=== PATIENT | female | born 1970 | race American Indian/Alaskan Native ===

== ENCOUNTER 2018-06-20 15:31 | Inpatient (IN) | payer MEDICARE ==
--- NOTE | 2018-06-20 16:56 | Emergency Department Report ---
HPI - General Chief Complaint: Upper Respiratory Infection Time Seen by Provider: 06/20/18 16:46 - HPI HPI: 48-year-old -[place] female presents to the emergency department via EMS from home with complaint of acute on chronic shortness of breath and chest tightness/pressure. The patient thinks it is related to mold that she has in her home. She was leaving the bathroom this afternoon and felt like "I was on my last leg." She has a past medical history of diet-controlled diabetes, hypertension, previous colon resection with colostomy, and morbid obesity. The patient received 5 mg of albuterol and 125 mg of Solu-Medrol in route with some mild relief. No recent travel or sick contacts at home. Her primary care physician is Dr. Josefina Eden. ED Past Medical Hx - Past Medical History Hx Hypertension: Yes Hx Congestive Heart Failure: No Hx Diabetes: Yes Hx Asthma: No Hx COPD: No - Surgical History Hx Appendectomy: Yes (2010) Additional Surgical History: 2 , ovarian cyst ruptured 2010,colon re section with colostomy,[id number] - Social History Smoking Status: Never Smoker - Medications Home Medications: Home Medications Medication Instructions Recorded Confirmed Last Taken Type Amoxicillin [Trimox CAP] 500 mg PO Q8H 11/24/15 11/24/15 Unknown History Lisinopril/Hydrochlorothiazide 1 tab PO QDAY 11/24/15 11/24/15 Unknown History [Zestoretic 20-12.5 mg] ED Review of Systems ROS: Stated complaint: DIFFICULTY BREATHING Other details as noted in HPI Comment: All other systems reviewed and negative Constitutional: denies: chills, fever Eyes: denies: eye pain, vision change ENT: denies: ear pain, throat pain Respiratory: cough (nonproductive), shortness of breath Cardiovascular: chest pain. denies: palpitations Gastrointestinal: denies: abdominal pain, vomiting Genitourinary: denies: dysuria, discharge Musculoskeletal: denies: back pain, arthralgia Skin: denies: rash, lesions Neurological: denies: headache, weakness Physical Exam - Physical Exam Vital Signs: Vital Signs 06/20/18 16:36 Temperature 97.8 F Pulse Rate 97 H Respiratory 20 Rate Blood Pressure 149/77 [Right] O2 Sat by Pulse 93 Oximetry Physical Exam: GENERAL: The patient is well-developed well-nourished. HEENT: Normocephalic. Atraumatic. Patient has moist mucous membranes. EYES: Extraocular motions are intact. Pupils are equal and reactive to light bilaterally. NECK: Supple. Trachea is midline. CHEST/LUNGS: Clear to auscultation. There is tachypnea but no sensory muscle use. There is no respiratory distress noted. HEART/CARDIOVASCULAR: Regular. There is no tachycardia. There is no obvious murmur. ABDOMEN: Abdomen is soft, nontender. Patient has normal bowel sounds. Severely morbidly obese. SKIN: Skin is warm and dry. NEURO: The patient is awake, alert, and oriented. The patient is cooperative. The patient has no focal neurologic deficits. The patient has normal speech. MUSCULOSKELETAL: There is no tenderness or deformity. There is no evidence of acute injury. ED Course Vital Signs 06/20/18 16:36 Temperature 97.8 F Pulse Rate 97 H Respiratory 20 Rate Blood Pressure 149/77 [Right] O2 Sat by Pulse 93 Oximetry ED Medical Decision Making - Lab Data Result diagrams: 06/20/18 17:34 06/20/18 17:34 - EKG Data -: EKG Interpreted by Dc EKG shows normal: sinus rhythm, axis, intervals, QRS complexes, ST-T waves Rate: normal - EKG Data When compared to previous EKG there are: previous EKG unavailable Interpretation: normal EKG - Radiology Data Radiology results: image reviewed interpreted by me: Chest x-ray shows some haziness to the right middle to lower lung. No pleural effusions, no pneumothorax and no obvious focal consolidation. - Medical Decision Making This patient presents with the complaint of shortness of breath and chest tightness that started acutely just prior to arrival but also has been going on intermittently in the recent past. EKG was normal without ST elevation TN, ischemia or dysrhythmia. Chest x-ray shows some haziness towards the right middle and lower lungs. Patient's labs appeared mostly unremarkable except for an elevated and equivocal d-dimer. Unfortunately, secondary to the patient's habitus and weight, we are unable to get a CT angiography of the chest or a VQ scan to rule out a pulmonary embolism. She has been treated empirically with a dose of Lovenox at 1 unit per KG. She was given a dose of azithromycin secondary to the haziness seen on chest x-ray. Vital signs stable throughout her ED course including being afebrile. The patient will be admitted to the hospital for further evaluation and treatment and was accepted for admission by the hospitalist, Dr. Olmedo. - Differential Diagnosis pneumonia, CHF, PE, TN, Asthma Critical Care Time: No Critical care attestation.: If time is entered above; I have spent that time in minutes in the direct care of this critically ill patient, excluding procedure time. ED Disposition Clinical Impression: Acute chest pain, Morbid obesity, Obesity hypoventilation syndrome Dyspnea Qualifiers: Dyspnea type: shortness of breath Qualified Code(s): R06.02 - Shortness of breath; R06.00 - Dyspnea, unspecified; R06.01 - Orthopnea Disposition: 09 OP ADMIT IP TO THIS HOSP Is pt being admited?: Yes Condition: Fair Instructions: Chest Pain (ED) Referrals: CHRISTIANO RAMIREZ DO [Primary Care Provider] - 3-5 Days Time of Disposition: 22:19
[2018-06-20 18:15] LABS: Basophils # (Auto) 0.1 K/mm3 (0.0-0.1); Basophils % (Auto) 0.4 % (0.0-1.8); Eosinophils # (Auto) 0.1 K/mm3 (0.0-0.4); Eosinophils % (Auto) 0.7 % (0.0-4.3); Hemoglobin 13.9 gm/dl (10.1-14.3); Lymphocytes # (Auto) 1.4 K/mm3 (1.2-5.4); Lymphocytes % (Auto) 12.1 % (13.4-35.0); Mean Corpuscular HGB Conc 33 % (30-34); Mean Corpuscular Volume 86 fl (79-97); Monocytes # (Auto) 0.4 K/mm3 (0.0-0.8); Monocytes % (Auto) 3.3 % (0.0-7.3); Platelet Count 251 K/mm3 (140-440); Red Cell Distribution Width 14.9 % (13.2-15.2)
[2018-06-20 18:38] LABS: BUN/Creatinine Ratio 11; Blood Urea Nitrogen 10 mg/dL (7-17); Calcium 9.3 mg/dL (8.4-10.2); Hemolysis Index 4
[2018-06-20] MEDS ORDERED: DUONEB *Not for PRN Use IH ONE (18:50)
--- NOTE | 2018-06-20 19:22 | XRay Report ---
PROCEDURE: XR CHEST 1V AP TECHNIQUE: AP chest x-ray HISTORY: Chest Pain COMPARISONS: FINDINGS: The heart is magnified due to projection, probably normal size. Pulmonary vasculature not significant ly distended. A small amount of patchy alveolar density appears to be present in both bases suggestin g subsegmental areas of atelectasis or infiltrate. No dense consolidations or effusions are visualize d. No acute bone abnormalities are seen. IMPRESSION: Small amount of patchy alveolar density in the bases suggesting subsegmental areas of atelectasis or infiltrate. No dense consolidations or effusions are seen. No other abnormalities are identified.. This document is electronically signed by Tucker Shoemaker MD., June 20 2018 07:20:17 PM ET
[2018-06-20] MEDS ORDERED: LOVENOX SUB-Q SCH ×3 (22:00)
[2018-06-20] MEDS ORDERED: LOVENOX SUB-Q ONE (22:16)
[2018-06-20] MEDS ORDERED: ZITHROMAX 500 MG in NACL 0.9% 250ML 250 ML IV ONE (22:16)
[2018-06-20] MEDS ORDERED: ZOFRAN IV PRN (22:45)
[2018-06-20] MEDS ORDERED: ALUM-MAG HYDROX-SIMETH 200-200-20MG/5ML PO PRN (22:45)
[2018-06-20] MEDS ORDERED: MORPHINE IV PRN (22:45)
[2018-06-20] MEDS ORDERED: SODIUM CHLORIDE FLUSH SYRINGE 10 ML IV PRN (22:45)
[2018-06-20] MEDS ORDERED: TYLENOL PO PRN (22:45)
--- NOTE | 2018-06-20 23:59 | History and Physical Report ---
History of Present Illness Date of examination: 06/20/18 Date of admission: 06/20/18 22:45 Chief complaint: Shortness of breath History of present illness: Patient is a 48-year-old -[place] Citizen female with a history of hypertension and morbid obesity who presented to the ED on account of shortness of breath. Patient stated that she's been having shortness of breath for many weeks but it got worse today which prompted her to come to the ED for further evaluation. She has associated chest heaviness, cough productive of whitish sputum, runny nose with congestion and lightheaded. She denies fever, chills, leg swelling, orthopnea or PND. No headaches, nausea, vomiting, syncope or loss of consciousness. She has positive history of constipation but no abdominal pain, diarrhea, dysuria or frequency. Past History Past Medical History: hypertension, other (morbid obesity, prediabetes) Past Surgical History: , hysterectomy, Other (D&C) Social history: no significant social history (she denies tobacco, alcohol or illicit drug use) Family history: diabetes (mother), hypertension (mother) Medications and Allergies Allergies Allergy/AdvReac Type Severity Reaction Status Date / Time morphine Allergy Itching Verified 11/24/15 11:36 Home Medications Medication Instructions Recorded Confirmed Last Taken Type Amoxicillin [Trimox CAP] 500 mg PO Q8H 11/24/15 11/24/15 Unknown History Lisinopril/Hydrochlorothiazide 1 tab PO QDAY 11/24/15 11/24/15 Unknown History [Zestoretic 20-12.5 mg] Active Meds: Active Medications Acetaminophen (Tylenol) 650 mg PO Q4H PRN PRN Reason: Pain MILD(1-3)/Fever >100.5/VALENTE Al Hydrox/Mg Hydrox/Simethicone (Alum-Mag Hydrox-Simeth [phone]/5ml) 30 ml PO Q4H PRN PRN Reason: Indigestion Enoxaparin Sodium (Lovenox) 40 mg SUB-Q QDAY HARVEY Famotidine (Pepcid) 10 mg PO BID HARVEY Levofloxacin/Dextrose (Levaquin 750mg/150ml) 750 mg in 150 mls @ 100 mls/hr IV Q24HR HARVEY; Protocol Ondansetron HCl (Zofran) 4 mg IV Q8H PRN PRN Reason: Nausea And Vomiting Sodium Chloride (Sodium Chloride Flush Syringe 10 Ml) 10 ml IV BID HARVEY Sodium Chloride (Sodium Chloride Flush Syringe 10 Ml) 10 ml IV PRN PRN PRN Reason: LINE FLUSH Review of Systems All systems: negative (except as documented in the HPI, all other systems were reviewed and negative) Exam - Constitutional Vitals: Temp Pulse Resp BP Pulse Ox 98.2 F 83 17 131/68 96 06/20/18 21:39 06/20/18 23:00 06/20/18 23:00 06/20/18 23:00 06/20/18 23:00 General appearance: Present: no acute distress, obese - EENT Eyes: Present: PERRL, EOM intact ENT: hearing intact, clear oral mucosa - Neck Neck: Present: supple, normal ROM - Respiratory Respiratory effort: normal Respiratory: bilateral: rales - Cardiovascular Rhythm: regular Heart Sounds: Present: S1 & S2. Absent: rub, click - Extremities Extremity abnormal: edema (trace edema in bilateral lower extremities) Peripheral Pulses: within normal limits - Abdominal General gastrointestinal: Present: soft, non-tender, non-distended, normal bowel sounds Female genitourinary: Present: deferred - Integumentary Integumentary: Present: clear, warm, dry - Musculoskeletal Musculoskeletal: gait normal, strength equal bilaterally - Psychiatric Psychiatric: appropriate mood/affect, intact judgment & insight - Neurologic Neurologic: CNII-XII intact, moves all extremities Results - Labs CBC & Chem 7: 06/20/18 17:34 06/20/18 17:34 Labs: Laboratory Last Values WBC 11.9 K/mm3 (4.5-11.0) H 06/20/18 17:34 RBC 4.90 M/mm3 (3.65-5.03) 06/20/18 17:34 Hgb 13.9 gm/dl (10.1-14.3) 06/20/18 17:34 Hct 42.0 % (30.3-42.9) 06/20/18 17:34 MCV 86 fl (79-97) 06/20/18 17:34 MCH 28 pg (28-32) 06/20/18 17:34 MCHC 33 % (30-34) 06/20/18 17:34 RDW 14.9 % (13.2-15.2) 06/20/18 17:34 Plt Count 251 K/mm3 (140-440) 06/20/18 17:34 Lymph % (Auto) 12.1 % (13.4-35.0) L 06/20/18 17:34 Bea[place]gard % (Auto) 3.3 % (0.0-7.3) 06/20/18 17:34 Eos % (Auto) 0.7 % (0.0-4.3) 06/20/18 17:34 Baso % (Auto) 0.4 % (0.0-1.8) 06/20/18 17:34 Lymph # 1.4 K/mm3 (1.2-5.4) 06/20/18 17:34 [place]gard # 0.4 K/mm3 (0.0-0.8) 06/20/18 17:34 Eos # 0.1 K/mm3 (0.0-0.4) 06/20/18 17:34 Baso # 0.1 K/mm3 (0.0-0.1) 06/20/18 17:34 Seg Neutrophils % 83.5 % (40.0-70.0) H 06/20/18 17:34 Seg Neutrophils # 9.9 K/mm3 (1.8-7.7) H 06/20/18 17:34 D-Dimer 651.48 ng/mlDDU (0-234) H 06/20/18 17:34 Sodium 145 mmol/L (137-145) 06/20/18 17:34 Potassium 3.6 mmol/L (3.6-5.0) 06/20/18 17:34 Chloride 98.1 mmol/L (98-107) 06/20/18 17:34 Carbon Dioxide 36 mmol/L (22-30) H 06/20/18 17:34 Anion Gap 15 mmol/L 06/20/18 17:34 BUN 10 mg/dL (7-17) 06/20/18 17:34 Creatinine 0.9 mg/dL (0.7-1.2) 06/20/18 17:34 Estimated GFR > 60 ml/min 06/20/18 17:34 BUN/Creatinine Ratio 11 % 06/20/18 17:34 Glucose 147 mg/dL (65-100) H 06/20/18 17:34 Calcium 9.3 mg/dL (8.4-10.2) 06/20/18 17:34 Troponin T < 0.010 ng/mL (0.00-0.029) 06/20/18 20:50 NT-Pro-B Natriuret Pep 242.5 pg/mL (0-450) 06/20/18 17:34 Assessment and Plan Assessment and plan: Acute bronchitis/Possible pneumonia -On IV antibiotic and nebulizer breathing treatment Chest heaviness -Continue serial troponin level monitoring -Patient will be unable to have stress test due to body habitus Elevated d-dimer -Patient unable to have either v/q scan or CTA chest due to body habitus -We'll order venous Doppler ultrasound of BLE to assess for DVT Metabolic alkalosis -will do ABG Obesity hypoventilation syndrome -Weight loss recommended Morbid obesity with BMI of 73.2 -Lifestyle modification recommended Hypertension -Stable, resume home meds Hyperglycemia -We will check hemoglobin A1c level Suspected VANI -Pt would benefit from out-pt sleep study DVT prophylaxis with Lovenox Disposition: For discharge when medically stable Time spent: 38 minutes
[2018-06-21] MEDS ORDERED: DUONEB *Not for PRN Use IH ONE ×2 (04:35→12:59)
[2018-06-21] MEDS: DUONEB *Not for PRN Use IH SCH ×3 (04:35→20:50)
[2018-06-21 07:29] LABS: Basophils # (Auto) 0.1 K/mm3 (0.0-0.1); Basophils % (Auto) 0.5 % (0.0-1.8); Hematocrit 41.8 % (30.3-42.9); Hemoglobin 13.7 gm/dl (10.1-14.3); Lymphocytes % (Auto) 9.4 % (13.4-35.0); Mean Corpuscular HGB Conc 33 % (30-34); Mean Corpuscular Volume 86 fl (79-97); Monocytes # (Auto) 0.5 K/mm3 (0.0-0.8); Platelet Count 248 K/mm3 (140-440); Red Blood Count 4.87 M/mm3 (3.65-5.03); Red Cell Distribution Width 14.9 % (13.2-15.2)
[2018-06-21] MEDS ORDERED: LEVAQUIN 750MG/150ML 750 MG/150 ML BAG IV ONE (10:08)
[2018-06-21] MEDS ORDERED: LOVENOX SUB-Q ONE (10:08)
[2018-06-21] MEDS ORDERED: PEPCID ONE (10:08)
[2018-06-21] MEDS: PEPCID PO SCH ×2 (10:10→21:18)
[2018-06-21] MEDS: LOVENOX SUB-Q SCH (10:10)
[2018-06-21] MEDS: SODIUM CHLORIDE FLUSH SYRINGE 10 ML IV SCH ×2 (13:50→21:19)
[2018-06-21] MEDS: LEVAQUIN 750MG/150ML 750 MG/150 ML BAG IV SCH (14:15)
--- NOTE | 2018-06-21 15:11 | Vascular Lab Report ---
PROCEDURE: VL VENOUS DUPLEX LE BILAT TECHNIQUE: Duplex Doppler ultrasound examination of the venous system of the right leg and left leg HISTORY: ELEVATED D-DIMER COMPARISONS: None FINDINGS: RIGHT LEG: Normal compressibility, vascular patency, and augmentation are present diffusely throughout the visua lized portion of the deep veins. No abnormal intraluminal echoes are visualized to suggest deep vein thrombus. Examination limited by body habitus IMPRESSION: No ultrasound evidence of DVT in the right leg LEFT LEG: Normal compressibility, vascular patency, and augmentation are present diffusely throughout the visua lized portion of the deep veins. No abnormal intraluminal echoes are visualized to suggest deep vein thrombus. Examination limited by body habitus IMPRESSION: No ultrasound evidence of DVT in the left leg This document is electronically signed by Teddy Spence MD., June 21 2018 03:09:28 PM ET
--- NOTE | 2018-06-21 16:52 | Progress Note ---
Assessment and Plan Acute respiratory failure - Presumably acute on chronic issue due to obesity hypoventilation syndrome and obstructive sleep apnea - Probably exacerbated because of acute bronchitis/pneumonia - Continue scheduled neb, supplemental O2 as needed - Needs sleep study outpatient, will ASSESS for possible home O2 requirement on discharge Acute bronchitis/Possible bilateral community-acquired pneumonia -Continue On IV antibiotic and nebulizer breathing treatment Chest heaviness/pain -Continue serial troponin level monitoring -Patient will be unable to have stress test due to body habitus Elevated d-dimer -Patient unable to have either v/q scan or CTA chest due to body habitus -We'll order venous Doppler ultrasound of BLE to assess for DVT Metabolic alkalosis -Likely from obesity hypoventilation syndrome Obesity hypoventilation syndrome -Weight loss recommended, consulted pulmonary Morbid obesity with BMI of 73.2 -Lifestyle modification recommended Hypertension -Stable, resumed home meds Hyperglycemia, likely from steroids -We will check hemoglobin A1c level Suspected VANI -Pt would benefit from out-pt sleep study DVT prophylaxis with Lovenox Disposition: For discharge when medically stable Brief History: Patient is a 48-year-old -[place] female with a history of hypertension and morbid obesity who presented to the ED on account of shortness of breath. Radiological data: Chest x-ray: Small amount of patchy alveolar density in the bases suggesting subsegmental areas of atelectasis or infiltrate. No dense consolidations or effusions are seen. No other abnormalities are identified.. Lower extremity venous Doppler: No ultrasound evidence of DVT in the right leg Hospitalist Physical exam: GENERAL: Morbidly obese -[place] female lying on bed appeared to be in no discomfort. HEENT: Normocephalic. Atraumatic. No conjunctival congestion or icterus. Patient has moist mucous membranes. NECK: Supple. Trachea midline. CHEST/LUNGS: breathing nonlabored. Diminished breath sounds auscultated bilaterally HEART/CARDIOVASCULAR: Regular in rate and rhythm. S1 and S2 positive. ABDOMEN: Abdomen is soft, nontender. Patient has normal bowel sounds. SKIN: There is no rash. Warm and dry. NEURO: No focal motor deficit. Follows command. MUSCULOSKELETAL: No joint effusion or tenderness. EXTRIMITY: No edema, no cyanosis or clubbing. PSYCH: Cooperative. Subjective Date of service: 06/21/18 Interval history: Patient seen and examined. Medical records and medication list reviewed. No acute event overnight noted by the RN. Patient denies any chest pain but complains of difficulty breathing even on minimal exertion. Patient is tolerating diet. Discussed plan of care at bedside with patient and her . Objective - Constitutional Vitals: Vital Signs - 12hr 06/21/18 06/21/18 06/21/18 05:00 05:30 06:00 Temperature Pulse Rate 86 81 79 Respiratory 15 19 18 Rate Blood Pressure 122/73 140/73 122/73 Blood Pressure [Right] O2 Sat by Pulse 83 L 93 93 Oximetry 06/21/18 06/21/18 06/21/18 06:30 07:00 07:30 Temperature Pulse Rate 80 79 79 Respiratory 16 22 26 H Rate Blood Pressure 137/78 147/76 147/76 Blood Pressure [Right] O2 Sat by Pulse 94 94 95 Oximetry 06/21/18 06/21/18 06/21/18 08:00 08:30 09:34 Temperature Pulse Rate 79 Respiratory 24 Rate Blood Pressure 132/65 148/81 125/67 Blood Pressure [Right] O2 Sat by Pulse 94 94 96 Oximetry 06/21/18 06/21/18 06/21/18 09:49 10:00 10:30 Temperature Pulse Rate Respiratory Rate Blood Pressure 125/67 151/82 Blood Pressure [Right] O2 Sat by Pulse 95 95 94 Oximetry 06/21/18 06/21/18 06/21/18 11:00 11:43 12:33 Temperature 98.1 F Pulse Rate 75 81 Respiratory 16 20 Rate Blood Pressure 149/76 Blood Pressure 137/79 139/89 [Right] O2 Sat by Pulse 94 97 95 Oximetry 06/21/18 14:47 Temperature 98 F Pulse Rate 81 Respiratory 16 Rate Blood Pressure Blood Pressure 126/78 [Right] O2 Sat by Pulse 96 Oximetry - Labs CBC & Chem 7: 06/21/18 06:33 06/20/18 17:34 Labs: Abnormal lab results 06/20/18 06/20/18 06/20/18 Range/Units 17:34 17:34 17:34 WBC 11.9 H (4.5-11.0) K/mm3 Lymph % (Auto) 12.1 L (13.4-35.0) % Lymph # (1.2-5.4) K/mm3 Seg Neutrophils % 83.5 H (40.0-70.0) % Seg Neutrophils # 9.9 H (1.8-7.7) K/mm3 D-Dimer 651.48 H (0-234) ng/mlDDU Carbon Dioxide 36 H (22-30) mmol/L Glucose 147 H (65-100) mg/dL Hemoglobin A1c (4-6) % 06/21/18 06/21/18 Range/Units 06:33 06:33 WBC (4.5-11.0) K/mm3 Lymph % (Auto) 9.4 L (13.4-35.0) % Lymph # 1.0 L (1.2-5.4) K/mm3 Seg Neutrophils % 85.1 H (40.0-70.0) % Seg Neutrophils # 9.1 H (1.8-7.7) K/mm3 D-Dimer (0-234) ng/mlDDU Carbon Dioxide (22-30) mmol/L Glucose (65-100) mg/dL Hemoglobin A1c 6.5 H (4-6) %
--- NOTE | 2018-06-21 19:11 | Consultation ---
History of Present Illness Consult date: 06/21/18 Reason for consult: dyspnea, cough, obstructive sleep apnea History of present illness: PULMONARY AND CRITICAL CARE CONSULTATION DR. DAMON THANK YOU FOR ASING US TO PARTICIPATE IN THE CARE OF THIS PATIENT Patient is a 48-year-old -[place] female with a history of hypertension, diabetes and morbid obesity who presented to the ED on account of shortness of breath. Patient stated that she's been having shortness of breath for many weeks but it got worse today which prompted her to come to the ED for further evaluation. She has associated chest heaviness, cough productive of whitish sputum, runny nose with congestion and lightheaded. She denies fever, chills, leg swelling, orthopnea or PND. No headaches, nausea, vomiting, syncope or loss of consciousness. She has positive history of constipation but no abdominal pain, diarrhea, dysuria or frequency. Patient has no history of smoking, alcohol or drug abuse. Patient is house and has 3 children.Patient resting on room air.O2 saturation 90%.Patients D dimer elevated. Venous doppler studies reported negative for DVT. Recommend Angio CT of chest or V/Q scan. Chest xray reported patchy infiltrates at the bases.Patient is on Levaquin. Past History Past Medical History: hypertension, other (morbid obesity, prediabetes) Past Surgical History: , hysterectomy, Other (D&C) Social history: no significant social history (she denies tobacco, alcohol or illicit drug use) Family history: diabetes (mother), hypertension (mother) Medications and Allergies Allergies Allergy/AdvReac Type Severity Reaction Status Date / Time morphine Allergy Itching Verified 11/24/15 11:36 Home Medications Medication Instructions Recorded Confirmed Last Taken Type Albuterol Sulfate [Ventolin Hfa] 18 gm IH PRN 06/21/18 06/21/18 Unknown History AtorvaSTATin [Lipitor] 20 mg PO QHS 06/21/18 06/21/18 Unknown History Losartan/Hydrochlorothiazide 1 each PO DAILY 06/21/18 06/21/18 Unknown History [Losartan-Hctz 50-12.5 mg Tab] NIFEdipine [Nifedipine ER] 30 mg PO DAILY 06/21/18 06/21/18 Unknown History Active Meds: Active Medications Acetaminophen (Tylenol) 650 mg PO Q4H PRN PRN Reason: Pain MILD(1-3)/Fever >100.5/VALENTE Al Hydrox/Mg Hydrox/Simethicone (Alum-Mag Hydrox-Simeth [id number]/5ml) 30 ml PO Q4H PRN PRN Reason: Indigestion Albuterol/Ipratropium (Duoneb *Not For Prn Use*) 1 ampul IH Q6HRT [facility] Last Admin: 06/21/18 18:21 Dose: Not Given Documented by: Enoxaparin Sodium (Lovenox) 40 mg SUB-Q QDAY [facility] Last Admin: 06/21/18 10:10 Dose: 40 mg Documented by: Famotidine (Pepcid) 10 mg PO BID [facility] Last Admin: 06/21/18 10:10 Dose: 10 mg Documented by: Levofloxacin/Dextrose (Levaquin 750mg/150ml) 750 mg in 150 mls @ 100 mls/hr IV Q24HR [facility]; Protocol Last Admin: 06/21/18 14:15 Dose: 100 mls/hr Documented by: Ondansetron HCl (Zofran) 4 mg IV Q8H PRN PRN Reason: Nausea And Vomiting Sodium Chloride (Sodium Chloride Flush Syringe 10 Ml) 10 ml IV BID [facility] Last Admin: 06/21/18 13:50 Dose: 10 ml Documented by: Sodium Chloride (Sodium Chloride Flush Syringe 10 Ml) 10 ml IV PRN PRN PRN Reason: LINE FLUSH Review of Systems All systems: negative Physical Examination Vital signs: Vital Signs Temp Pulse Resp BP Pulse Ox 97.8 F 97 H 20 149/77 93 06/20/18 16:36 06/20/18 16:36 06/20/18 16:36 06/20/18 16:36 06/20/18 16:36 General appearance: no acute distress, alert Eyes: non-icteric Neck: supple, no JVD Ascultation: Bilateral: diminished breath sounds Cardiovascular: regular rate and rhythm Gastrointestinal: normoactive bowel sounds, soft, non-tender Integumentary: normal Extremities: no cyanosis, no edema Musculoskeletal: no deformities Gait: other (Patient is in bed at this time.) normal mental status, non-focal exam, pupils equal and round, CN II-XII normal mood appropriate Results - Laboratory Findings CBC and BMP: 06/21/18 06:33 06/20/18 17:34 PT/INR, D-dimer D-Dimer 651.48 ng/mlDDU (0-234) H 06/20/18 17:34 Abnormal lab findings: Abnormal Labs 06/20/18 06/20/18 06/20/18 17:34 17:34 17:34 WBC 11.9 H Lymph % (Auto) 12.1 L Lymph # Seg Neutrophils % 83.5 H Seg Neutrophils # 9.9 H D-Dimer 651.48 H Carbon Dioxide 36 H Glucose 147 H Hemoglobin A1c 06/21/18 06/21/18 06:33 06:33 WBC Lymph % (Auto) 9.4 L Lymph # 1.0 L Seg Neutrophils % 85.1 H Seg Neutrophils # 9.1 H D-Dimer Carbon Dioxide Glucose Hemoglobin A1c 6.5 H - Diagnostic Findings Chest x-ray: report reviewed, image reviewed Additional studies: Chest xray done 06/20/18 IMPRESSION: Small amount of patchy alveolar density in the bases suggesting subsegmental areas of atelectasis or infiltrate. No dense consolidations or effusions are seen. No other abnormalities are identified.. Assessment and Plan Patient is a 48-year-old -[place] female with a history of hypertension, diabetes and morbid obesity who presented to the ED on account of shortness of breath. Patient stated that she's been having shortness of breath for many weeks but it got worse today which prompted her to come to the ED for further evaluation. She has associated chest heaviness, cough productive of whitish sputum, runny nose with congestion and lightheaded. She denies fever, chills, leg swelling, orthopnea or PND. No headaches, nausea, vomiting, syncope or loss of consciousness. She has positive history of constipation but no abdominal pain, diarrhea, dysuria or frequency. Patient has no history of smoking, alcohol or drug abuse. Patient is house and has 3 children.Patient resting on room air.O2 saturation 90%.Patients D dimer elevated. Venous doppler studies reported negative for DVT. Recommend Angio CT of chest or V/Q scan. Chest xray reported patchy infiltrates at the bases.Patient is on Levaquin. - Patient Problems (1) Dyspnea Current Visit: Yes Status: Acute Qualifiers: Dyspnea type: shortness of breath Qualified Code(s): R06.02 - Shortness of breath; R06.00 - Dyspnea, unspecified; R06.01 - Orthopnea Plan to address problem: O2 2 litres via nasal canula ABGs on room air. Albuterol/atrovent aerosol treatments q 6 hours. Continue Levaquin Continue S/C Lovenox. Continue Famotidine. (2) Morbid obesity Current Visit: Yes Status: Acute Plan to address problem: Recommend to loose weight. Sleep study as out patient. (3) Obesity hypoventilation syndrome Current Visit: Yes Status: Acute Plan to address problem: Sleep study as out patient. ABGs on room air. (4) D-dimer, elevated Current Visit: Yes Status: Acute Plan to address problem: Venous doppler studies negative. Recommend Angio CT of chest or V/Q scan. (5) Pulmonary infiltrates on CXR Current Visit: Yes Status: Acute Plan to address problem: Patient is on levaquin.
[2018-06-21] MEDS ORDERED: SENOKOT PO PRN (22:59)
[2018-06-21] MEDS: BENADRYL PO PRN (23:08)
[2018-06-22] MEDS: DUONEB *Not for PRN Use IH SCH ×4 (01:46→20:35)
[2018-06-22] MEDS: LOVENOX SUB-Q SCH (09:41)
[2018-06-22] MEDS: PEPCID PO SCH ×2 (09:41→21:36)
[2018-06-22] MEDS: LEVAQUIN 750MG/150ML 750 MG/150 ML BAG IV SCH (09:41)
[2018-06-22] MEDS: SODIUM CHLORIDE FLUSH SYRINGE 10 ML IV SCH ×2 (09:41→21:37)
--- NOTE | 2018-06-22 17:07 | Progress Note ---
Assessment and Plan Acute respiratory failure - Presumably acute on chronic issue due to obesity hypoventilation syndrome and obstructive sleep apnea - Probably exacerbated because of acute bronchitis/pneumonia - Continue scheduled neb, supplemental O2 as needed - Needs sleep study outpatient, pending ASSESSment for possible home O2 requirement on discharge Acute bronchitis/Possible bilateral community-acquired pneumonia -Continue On IV antibiotic and nebulizer breathing treatment Chest heaviness/pain -Continue serial troponin level monitoring -Patient will be unable to have stress test due to body habitus - likely noncardiac and from cough due to bronchitis - will follow 2d echo Elevated d-dimer -Patient unable to have either v/q scan or CTA chest due to body habitus -negative venous Doppler ultrasound for DVT Metabolic alkalosis -Likely from obesity hypoventilation syndrome - cont to monitor Obesity hypoventilation syndrome -Weight loss recommended, consulted pulmonary Morbid obesity with BMI of 73.2 -Lifestyle modification recommended Hypertension -Stable, resumed home meds Hyperglycemia, likely from steroids -We will check hemoglobin A1c level Suspected VANI -Pt would benefit from out-pt sleep study DVT prophylaxis with Lovenox Disposition: For discharge when medically stable Brief History: Patient is a 48-year-old -[place]ian female with a history of hypertension and morbid obesity who presented to the ED on account of shortness of breath. Radiological data: Chest x-ray: Small amount of patchy alveolar density in the bases suggesting subsegmental areas of atelectasis or infiltrate. No dense consolidations or effusions are seen. No other abnormalities are identified.. Lower extremity venous Doppler: No ultrasound evidence of DVT in the right leg Hospitalist Physical exam: GENERAL: Morbidly obese -[place] female lying on bed appeared to be in no discomfort. HEENT: Normocephalic. Atraumatic. No conjunctival congestion or icterus. Patient has moist mucous membranes. NECK: Supple. Trachea midline. CHEST/LUNGS: breathing nonlabored. Diminished breath sounds auscultated bilaterally HEART/CARDIOVASCULAR: Regular in rate and rhythm. S1 and S2 positive. ABDOMEN: Abdomen is soft, nontender. Patient has normal bowel sounds. SKIN: There is no rash. Warm and dry. NEURO: No focal motor deficit. Follows command. MUSCULOSKELETAL: No joint effusion or tenderness. EXTRIMITY: No edema, no cyanosis or clubbing. PSYCH: Cooperative. Subjective Date of service: 06/22/18 Interval history: Patient seen and examined. Medical records and medication list reviewed. No acute event overnight noted by the RN. Patient denies any chest pain but complains of difficulty breathing even on minimal exertion. Patient is tolerating diet. Discussed plan of care at bedside with patient and her . Patient may need home O2, pending Home o2 assessment Objective - Constitutional Vitals: Vital Signs - 12hr 06/22/18 06/22/18 06/22/18 07:48 08:00 09:00 Temperature 98.1 F Pulse Rate 81 Pulse Rate [ 84 Anterior Bilateral Throughout] Pulse Rate [ 88 Throughout] Respiratory 28 H Rate Respiratory 16 Rate [Anterior Bilateral Throughout] Respiratory 16 Rate [ Throughout] Blood Pressure 145/78 O2 Sat by Pulse 99 98 Oximetry 06/22/18 06/22/18 06/22/18 09:03 12:43 14:00 Temperature 98.4 F Pulse Rate 72 Pulse Rate [ 94 H Anterior Bilateral Throughout] Pulse Rate [ 90 Throughout] Respiratory 24 Rate Respiratory 16 Rate [Anterior Bilateral Throughout] Respiratory 16 Rate [ Throughout] Blood Pressure 156/98 O2 Sat by Pulse 99 99 Oximetry 06/22/18 16:22 Temperature 98.0 F Pulse Rate 80 Pulse Rate [ Anterior Bilateral Throughout] Pulse Rate [ Throughout] Respiratory 24 Rate Respiratory Rate [Anterior Bilateral Throughout] Respiratory Rate [ Throughout] Blood Pressure 146/87 O2 Sat by Pulse 96 Oximetry - Labs CBC & Chem 7: 06/21/18 06:33 06/20/18 17:34 Labs: Abnormal lab results 06/22/18 Range/Units 16:17 POC ABG pCO2 58.0 H (35-45) POC ABG pO2 52 L (80-105)
--- NOTE | 2018-06-22 18:46 | Progress Note ---
Assessment and Plan Patient is a 48-year-old -[place]ogol[place] female with a history of hypertension, diabetes and morbid obesity who presented to the ED on account of shortness of breath. Patient stated that she's been having shortness of breath for many wee ks but it got worse today which prompted her to come to the ED for further evaluation. She has associated chest heaviness, cough productive of whitish sputum, runny nose with congestion and lightheaded. She denies fever, chills, leg swelling, orthopnea or PND. No headaches, nausea, vomiting, syncope or loss of consciousness. She has positive history of constipation but no abdominal pain, diarrhea, dysuria or frequency. Patient has no history of smoking, alcohol or drug abuse. Patient is house and has 3 children.Patient resting on room air.O2 saturation 90%.Patients D dimer elevated. Venous doppler studies reported negative for DVT. Recommend Angio CT of chest or V/Q scan. Chest xray reported patchy infiltrates at the bases.Patient is on Levaquin. 06/22/18 Patient alert, awake. Resting on 3 litres O2.O2 saturation 97%. Says shortness of breath getting better.Some reason angio CT of chest not done.Patients PO2 on room air 52. Patient is candidate for home O2. Recommend Home O2 2 litres via nasal canula. - Patient Problems (1) Dyspnea Current Visit: Yes Status: Acute Qualifiers: Dyspnea type: shortness of breath Qualified Code(s): R06.02 - Shortness of breath; R06.00 - Dyspnea, unspecified; R06.01 - Orthopnea Plan to address problem: O2 2 litres via nasal canula. Patients PO2 52 on room air. Patient is candidate for home O2.Recommend Home O2 2 litres via nasal canula. Albuterol/atrovent aerosol treatments q 6 hours. Continue Levaquin Continue S/C Lovenox. Continue Famotidine. (2) Morbid obesity Current Visit: Yes Status: Acute Plan to address problem: Recommend to loose weight. Sleep study as out patient. (3) Obesity hypoventilation syndrome Current Visit: Yes Status: Acute Plan to address problem: Sleep study as out patient. Patients PO2 on room air 52. Patient is candidate for home O2. Recommend Home O2 2 litres via nasal canula. (4) D-dimer, elevated Current Visit: Yes Status: Acute Plan to address problem: Venous doppler studies negative. Angio CT of chest or V/Q scan. (5) Pulmonary infiltrates on CXR Current Visit: Yes Status: Acute Plan to address problem: Patient is on levaquin. Subjective Date of service: 06/22/18 Interval history: Patient alert, awake. Resting on 3 litres O2.O2 saturation 97%. Says shortness of breath getting better.Some reason angio CT of chest not done. Objective Vital Signs - 12hr 06/22/18 06/22/18 06/22/18 07:48 08:00 09:00 Temperature 98.1 F Pulse Rate 81 Pulse Rate [ 84 Anterior Bilateral Throughout] Pulse Rate [ 88 Throughout] Respiratory 28 H Rate Respiratory 16 Rate [Anterior Bilateral Throughout] Respiratory 16 Rate [ Throughout] Blood Pressure 145/78 O2 Sat by Pulse 99 98 Oximetry 06/22/18 06/22/18 06/22/18 09:03 12:43 14:00 Temperature 98.4 F Pulse Rate 72 Pulse Rate [ 94 H Anterior Bilateral Throughout] Pulse Rate [ 90 Throughout] Respiratory 24 Rate Respiratory 16 Rate [Anterior Bilateral Throughout] Respiratory 16 Rate [ Throughout] Blood Pressure 156/98 O2 Sat by Pulse 99 99 Oximetry 06/22/18 16:22 Temperature 98.0 F Pulse Rate 80 Pulse Rate [ Anterior Bilateral Throughout] Pulse Rate [ Throughout] Respiratory 24 Rate Respiratory Rate [Anterior Bilateral Throughout] Respiratory Rate [ Throughout] Blood Pressure 146/87 O2 Sat by Pulse 96 Oximetry Constitutional: no acute distress, alert Eyes: non-icteric Neck: supple, no JVD Ascultation: Bilateral: diminished breath sounds Cardiovascular: regular rate and rhythm Gastrointestinal: normoactive bowel sounds, soft, non-tender Integumentary: normal Extremities: no cyanosis, no edema Neurologic: normal mental status, non-focal exam, pupils equal and round, CN II- XII normal Psychiatric: mood appropriate CBC and BMP: 06/21/18 06:33 06/20/18 17:34 ABG, PT/INR, D-dimer: ABG POC ABG pH 7.401 (7.35-7.45) 06/22/18 16:17 POC ABG pCO2 58.0 (35-45) H 06/22/18 16:17 POC ABG pO2 52 (80-105) L 06/22/18 16:17 POC ABG HCO3 36.0 (22-26 mml/L) 06/22/18 16:17 POC ABG Total CO2 38 (23-27mmol/L) 06/22/18 16:17 POC ABG O2 Sat 86 06/22/18 16:17 PT/INR, D-dimer D-Dimer 651.48 ng/mlDDU (0-234) H 06/20/18 17:34 Abnormal lab findings: Abnormal Labs 06/20/18 06/20/18 06/20/18 17:34 17:34 17:34 WBC 11.9 H Lymph % (Auto) 12.1 L Lymph # Seg Neutrophils % 83.5 H Seg Neutrophils # 9.9 H D-Dimer 651.48 H POC ABG pCO2 POC ABG pO2 Carbon Dioxide 36 H Glucose 147 H Hemoglobin A1c 06/21/18 06/21/18 06/22/18 06:33 06:33 16:17 WBC Lymph % (Auto) 9.4 L Lymph # 1.0 L Seg Neutrophils % 85.1 H Seg Neutrophils # 9.1 H D-Dimer POC ABG pCO2 58.0 H POC ABG pO2 52 L Carbon Dioxide Glucose Hemoglobin A1c 6.5 H
[2018-06-22] MEDS: BENADRYL PO PRN (21:37)
[2018-06-22] MEDS ORDERED: PROVENTIL IH PRN (23:21)
[2018-06-23] MEDS: PEPCID PO SCH ×2 (10:00→21:15)
[2018-06-23] MEDS: LOVENOX SUB-Q SCH (10:00)
[2018-06-23] MEDS: SODIUM CHLORIDE FLUSH SYRINGE 10 ML IV SCH ×3 (10:00→21:16)
[2018-06-23] MEDS: DUONEB *Not for PRN Use IH SCH ×3 (10:06→21:21)
[2018-06-23] MEDS: LEVAQUIN 750MG/150ML 750 MG/150 ML BAG IV SCH (13:02)
--- NOTE | 2018-06-23 13:39 | Progress Note ---
Assessment and Plan Acute hypoxic respiratory failure Acute bronchitis/Possible bilateral community-acquired pneumonia Suspected VANI with OHS( has metabolic alkalosis) Chest heaviness/pain Elevated d-dimer Metabolic alkalosis Obesity hypoventilation syndrome/sleep apnea Extreme obesity with BMI of 73.2 Hypertension Hyperglycemia, likely from steroids -Supplemental oxygen to keep O2 sats>90% -Bronchodilators -Short steroid course -Acccuchecks with glycemic control -Home oxygen evaluation prior to discharge -Antibiotics to complete course for CAP -Follow up transthoracic echocardiogram, evaluate LVEF and for pulmonary HTN -Patient unable to have either v/q scan or CTA chest due to body habitus -negative venous Doppler ultrasound for DVT -Weight loss and life style modifications -Chronic home medications -VTE prophylaxis -Out patient sleep study -Nocturnal BIPAP and prn -Incentive spirometry and airway clearance techniques -Increase activity -Influenza and pneumonia vaccination per protocol -Keep negative fluid balance as tolerated by renal function, hemodynamics -Replete electrolytes as indicated Subjective Date of service: 06/23/18 Interval history: Patient is a 48-year-old -[place]ic female with a history of hypertension and morbid obesity who presented to the ED on account of shortness of breath. Follow up For: Acute hypoxic respiratory failure, extreme obesity, VANI Seen and examined. Vitals, labs, medications, chart reviewed. 24 hour events reviewed. On going shortness of breath, improving. No fevers or chills, no abdominal pain, no nausea or vomiting, no diarrhea Objective Vital Signs - 12hr 06/23/18 06/23/18 06/23/18 08:51 09:00 10:00 Temperature 98.2 F Pulse Rate 69 Pulse Rate [ Anterior Bilateral Throughout] Respiratory 28 H Rate Respiratory Rate [Anterior Bilateral Throughout] Blood Pressure 140/83 O2 Sat by Pulse 97 95 97 Oximetry 06/23/18 06/23/18 10:07 10:19 Temperature Pulse Rate Pulse Rate [ 83 81 Anterior Bilateral Throughout] Respiratory Rate Respiratory 18 18 Rate [Anterior Bilateral Throughout] Blood Pressure O2 Sat by Pulse Oximetry Constitutional: no acute distress, alert Eyes: non-icteric Neck: supple, no JVD Effort: mildly labored Ascultation: Bilateral: diminished breath sounds Cardiovascular: regular rate and rhythm Gastrointestinal: normoactive bowel sounds, soft, non-tender Integumentary: normal Extremities: no cyanosis, no edema Neurologic: normal mental status, non-focal exam, pupils equal and round, CN II- XII normal Psychiatric: mood appropriate CBC and BMP: 06/21/18 06:33 06/20/18 17:34 ABG, PT/INR, D-dimer: ABG POC ABG pH 7.401 (7.35-7.45) 06/22/18 16:17 POC ABG pCO2 58.0 (35-45) H 06/22/18 16:17 POC ABG pO2 52 (80-105) L 06/22/18 16:17 POC ABG HCO3 36.0 (22-26 mml/L) 06/22/18 16:17 POC ABG Total CO2 38 (23-27mmol/L) 06/22/18 16:17 POC ABG O2 Sat 86 06/22/18 16:17 PT/INR, D-dimer D-Dimer 651.48 ng/mlDDU (0-234) H 06/20/18 17:34 Abnormal lab findings: Abnormal Labs 06/20/18 06/20/18 06/20/18 17:34 17:34 17:34 WBC 11.9 H Lymph % (Auto) 12.1 L Lymph # Seg Neutrophils % 83.5 H Seg Neutrophils # 9.9 H D-Dimer 651.48 H POC ABG pCO2 POC ABG pO2 Carbon Dioxide 36 H Glucose 147 H Hemoglobin A1c 06/21/18 06/21/18 06/22/18 06:33 06:33 16:17 WBC Lymph % (Auto) 9.4 L Lymph # 1.0 L Seg Neutrophils % 85.1 H Seg Neutrophils # 9.1 H D-Dimer POC ABG pCO2 58.0 H POC ABG pO2 52 L Carbon Dioxide Glucose Hemoglobin A1c 6.5 H Chest x-ray: image reviewed
--- NOTE | 2018-06-23 15:39 | Progress Note ---
Assessment and Plan Acute hypoxic respiratory failure - Presumably acute on chronic issue due to obesity hypoventilation syndrome and obstructive sleep apnea - Probably exacerbated because of acute bronchitis/pneumonia - Continue scheduled neb, abx, supplemental O2 as needed - Needs sleep study outpatient, pending home O2 arrangement on discharge Acute bronchitis/Possible bilateral community-acquired pneumonia -Continue On IV antibiotic and nebulizer breathing treatment Chest heaviness/pain -Continue serial troponin level monitoring -Patient will be unable to have stress test due to body habitus - likely noncardiac and from cough due to bronchitis - will follow 2d echo Elevated d-dimer -Patient unable to have either v/q scan or CTA chest due to body habitus -negative venous Doppler ultrasound for DVT Metabolic alkalosis -Likely from obesity hypoventilation syndrome - cont to monitor Obesity hypoventilation syndrome/sleep apnea -Weight loss recommended, consulted pulmonary - wait for home O2, sleep study outpt Morbid obesity with BMI of 73.2 -Lifestyle modification recommended Hypertension -Stable, resumed home meds Hyperglycemia, likely from steroids -We will check hemoglobin A1c level Suspected VANI -Pt would benefit from out-pt sleep study DVT prophylaxis with Lovenox Disposition: For discharge when medically stable Brief History: Patient is a 48-year-old -[place]anese female with a history of hypertension and morbid obesity who presented to the ED on account of shortness of breath. Radiological data: Chest x-ray: Small amount of patchy alveolar density in the bases suggesting subsegmental areas of atelectasis or infiltrate. No dense consolidations or effusions are seen. No other abnormalities are identified.. Lower extremity venous Doppler: No ultrasound evidence of DVT in the right leg Hospitalist Physical exam: GENERAL: Morbidly obese -L[place]anese female lying on bed appeared to be in no discomfort. HEENT: Normocephalic. Atraumatic. No conjunctival congestion or icterus. Patient has moist mucous membranes. NECK: Supple. Trachea midline. CHEST/LUNGS: breathing nonlabored. Diminished breath sounds auscultated oneyda aterally HEART/CARDIOVASCULAR: Regular in rate and rhythm. S1 and S2 positive. ABDOMEN: Abdomen is soft, nontender. Patient has normal bowel sounds. SKIN: There is no rash. Warm and dry. NEURO: No focal motor deficit. Follows command. MUSCULOSKELETAL: No joint effusion or tenderness. EXTRIMITY: No edema, no cyanosis or clubbing. PSYCH: Cooperative. Subjective Date of service: 06/23/18 Interval history: Patient seen and examined. Medical records and medication list reviewed. No acute event overnight noted by the RN. Patient denies any chest pain but complains of difficulty breathing even on minimal exertion. Patient is tolerating diet. Discussed plan of care at bedside with patient Patient will need home O2, d/c pending on Home O2 Objective - Constitutional Vitals: Vital Signs - 12hr 06/23/18 06/23/18 06/23/18 08:51 09:00 10:00 Temperature 98.2 F Pulse Rate 69 Pulse Rate [ Anterior Bilateral Throughout] Respiratory 28 H Rate Respiratory Rate [Anterior Bilateral Throughout] Blood Pressure 140/83 O2 Sat by Pulse 97 95 97 Oximetry 06/23/18 06/23/18 06/23/18 10:07 10:19 14:56 Temperature Pulse Rate Pulse Rate [ 83 81 77 Anterior Bilateral Throughout] Respiratory Rate Respiratory 18 18 19 Rate [Anterior Bilateral Throughout] Blood Pressure O2 Sat by Pulse Oximetry - Labs CBC & Chem 7: 06/21/18 06:33 06/20/18 17:34 Labs: Abnormal lab results 06/22/18 Range/Units 16:17 POC ABG pCO2 58.0 H (35-45) POC ABG pO2 52 L (80-105)
[2018-06-24] MEDS: DUONEB *Not for PRN Use IH SCH ×2 (09:23→14:42)
[2018-06-24] MEDS: PEPCID PO SCH (10:09)
[2018-06-24] MEDS: LOVENOX SUB-Q SCH (10:09)
[2018-06-24] MEDS: LEVAQUIN 750MG/150ML 750 MG/150 ML BAG IV SCH (10:09)
[2018-06-24] MEDS: SODIUM CHLORIDE FLUSH SYRINGE 10 ML IV SCH (10:09)
[2018-06-24 10:17] VITALS: BP 153/93
--- NOTE | 2018-06-24 13:44 | Progress Note ---
Assessment and Plan Acute hypoxic respiratory failure Acute bronchitis/Possible bilateral community-acquired pneumonia Suspected VANI with OHS( has metabolic alkalosis) Chest heaviness/pain Elevated d-dimer Metabolic alkalosis Obesity hypoventilation syndrome/sleep apnea Extreme obesity with BMI of 73.2 Hypertension Hyperglycemia, likely from steroids -Supplemental oxygen to keep O2 sats>90% -Bronchodilators -Short steroid course -Acccuchecks with glycemic control -Home oxygen evaluation prior to discharge -Antibiotics to complete course for CAP -Follow up transthoracic echocardiogram, evaluate LVEF and for pulmonary HTN -Patient unable to have either v/q scan or CTA chest due to body habitus -negative venous Doppler ultrasound for DVT -Weight loss and life style modifications -Chronic home medications -VTE prophylaxis -Out patient sleep study -Nocturnal BIPAP and prn -Incentive spirometry and airway clearance techniques -Increase activity -Influenza and pneumonia vaccination per protocol -Keep negative fluid balance as tolerated by renal function, hemodynamics -Replete electrolytes as indicated Subjective Date of service: 06/24/18 Interval history: Patient is a 48-year-old -[place] female with a history of hypertension and morbid obesity who presented to the ED on account of shortness of breath. Follow up For: Acute hypoxic respiratory failure, extreme obesity, VANI Seen and examined. Vitals, labs, medications, chart reviewed. 24 hour events reviewed. On going shortness of breath, improving. No fevers or chills, no abdominal pain, no nausea or vomiting, no diarrhea Objective Vital Signs - 12hr 06/24/18 06/24/18 06/24/18 04:43 09:21 10:16 Temperature 97.9 F 98.1 F Pulse Rate 81 83 Respiratory 18 18 Rate Blood Pressure 153/81 153/93 O2 Sat by Pulse 96 98 94 Oximetry Constitutional: no acute distress, alert Eyes: non-icteric Neck: supple, no JVD Ascultation: Bilateral: diminished breath sounds Cardiovascular: regular rate and rhythm Gastrointestinal: normoactive bowel sounds, soft, non-tender Integumentary: normal Extremities: no cyanosis, no edema Neurologic: normal mental status, non-focal exam, pupils equal and round, CN II- XII normal Psychiatric: mood appropriate CBC and BMP: 06/21/18 06:33 06/20/18 17:34 ABG, PT/INR, D-dimer: ABG POC ABG pH 7.401 (7.35-7.45) 06/22/18 16:17 POC ABG pCO2 58.0 (35-45) H 06/22/18 16:17 POC ABG pO2 52 (80-105) L 06/22/18 16:17 POC ABG HCO3 36.0 (22-26 mml/L) 06/22/18 16:17 POC ABG Total CO2 38 (23-27mmol/L) 06/22/18 16:17 POC ABG O2 Sat 86 06/22/18 16:17 PT/INR, D-dimer D-Dimer 651.48 ng/mlDDU (0-234) H 06/20/18 17:34 Abnormal lab findings: Abnormal Labs 06/20/18 06/20/18 06/20/18 17:34 17:34 17:34 WBC 11.9 H Lymph % (Auto) 12.1 L Lymph # Seg Neutrophils % 83.5 H Seg Neutrophils # 9.9 H D-Dimer 651.48 H POC ABG pCO2 POC ABG pO2 Carbon Dioxide 36 H Glucose 147 H Hemoglobin A1c 06/21/18 06/21/18 06/22/18 06:33 06:33 16:17 WBC Lymph % (Auto) 9.4 L Lymph # 1.0 L Seg Neutrophils % 85.1 H Seg Neutrophils # 9.1 H D-Dimer POC ABG pCO2 58.0 H POC ABG pO2 52 L Carbon Dioxide Glucose Hemoglobin A1c 6.5 H
[2018-06-24] MEDS ORDERED: PROVENTIL IH PRN (14:29)
[2018-06-24] MEDS ORDERED: PROAIR IH SCH (14:30)
[2018-06-24] MEDS ORDERED: NON-FORMULARY (Losartan/Hydrochlorothiazide [Losartan-Hctz 50-12.5 Mg Tab] 1 EACH) PO SCH (14:30)
[2018-06-24] MEDS ORDERED: COZAAR PO SCH (14:30)
[2018-06-24] MEDS ORDERED: HCTZ PO SCH (14:30)
--- NOTE | 2018-06-24 14:36 | Discharge Summary ---
Providers - Providers Date of Admission: 06/20/18 22:45 Date of discharge: 06/24/18 Attending physician: XAVIER MCMAHON 06/21/18 11:00 Consult to Physician [CONS] Routine Comment: Consulting Provider: NICKOLAS MEDINA Physician Instructions: Reason For Exam: respiratory distress 06/22/18 12:02 Physical Therapy Evaluation and Treat [CONS] Routine Comment: Home O2 assessment Reason For Exam: placement 06/23/18 14:48 Consult to Case Management [CONS] Routine Services Needed at Discharge: Home O2 Notified:: CASE MANAGEMENT Hospitalization Condition: Fair Pertinent studies: ECHO EF 50 to 55 percent Arterial duplex No DVT in both lower extremities Hospital course: Acute hypoxic respiratory failure Presumably acute on chronic issue due to obesity hypoventilation syndrome and obstructive sleep apnea Probably exacerbated because of acute bronchitis/pneumonia Continue scheduled neb, abx, supplemental O2 as needed Needs sleep study outpatient, Home O2 arranged,Nebulizer machine prescribed Acute bronchitis/Possible bilateral community-acquired pneumonia -Continue On IV antibiotic and nebulizer breathing treatment Chest heaviness/pain -Continue serial troponin level monitoring -Patient will be unable to have stress test due to body habitus - likely noncardiac and from cough due to bronchitis - w 2d echo Elevated d-dimer -Patient unable to have either v/q scan or CTA chest due to body habitus -negative venous Doppler ultrasound for DVT Metabolic alkalosis Likely from obesity hypoventilation syndrome cont to monitor Obesity hypoventilation syndrome/sleep apnea Weight loss recommended, consulted pulmonary -wait for home O2, sleep study outpt Morbid obesity with BMI of 73.2 Lifestyle modification recommended Hypertension Stable, resumed home meds Hyperglycemia, likely from steroids We will check hemoglobin A1c level Suspected VANI Pt would benefit from out-pt sleep study F/u with Pulmonary and Sleep and Primary care Disposition: DC-01 TO HOME OR SELFCARE Core Measure Documentation - Palliative Care Palliative Care/ Comfort Measures: Not Applicable - Core Measures Any of the following diagnoses?: none Exam - Constitutional Vitals: Temp Pulse Resp BP Pulse Ox 98.1 F 83 18 153/93 94 06/24/18 10:16 06/24/18 10:16 06/24/18 10:16 06/24/18 10:16 06/24/18 10:16 General appearance: Present: no acute distress, well-nourished - EENT Eyes: Present: PERRL ENT: hearing intact, clear oral mucosa - Neck Neck: Present: supple, normal ROM - Respiratory Respiratory effort: normal Respiratory: bilateral: CTA - Cardiovascular Heart rate: 78 Rhythm: regular Heart Sounds: Present: S1 & S2. Absent: rub, click - Extremities Extremities: no ischemia, pulses intact, pulses symmetrical, No edema Extremity abnormal: other (Morbidly obese) Peripheral Pulses: within normal limits - Abdominal General gastrointestinal: Present: soft, non-tender, non-distended, normal bowel sounds Female genitourinary: Present: normal - Integumentary Integumentary: Present: clear, warm, dry - Musculoskeletal Musculoskeletal: gait normal, strength equal bilaterally - Psychiatric Psychiatric: appropriate mood/affect, intact judgment & insight - Neurologic Neurologic: CNII-XII intact, moves all extremities - Allied Health Allied health notes reviewed: nursing, case management Plan Activity: no restrictions Diet: regular (Less portions) Follow up with: CHRISTIANO RAMIREZ DO [Primary Care Provider] - 3-5 Days
[2018-06-24] MEDS ORDERED: PROCARDIA XL PO SCH (15:00)
== END 2018-06-24 16:46 | disposition home or self-care (01) | DRG 193 ==
LOC: ED 15:31 → 4A 22:45
PROVIDERS: ADMIT Internal Medicine; ATTEND Internal Medicine
PROC: 4A033R1 Measurement of Arterial Saturation, Peripheral, Percutaneous Approach (ICD-10-PCS; principal; 2018-06-22)
DX: J18.9 Pneumonia, unspecified organism (principal); J96.01 Acute respiratory failure with hypoxia; Z68.45 Body mass index [BMI] 70 or greater, adult; E66.2 Morbid (severe) obesity with alveolar hypoventilation; J20.9 Acute bronchitis, unspecified; I10 Essential (primary) hypertension; E11.65 Type 2 diabetes mellitus with hyperglycemia; T38.0X5A Adverse effect of glucocorticoids and synthetic analogues, initial encounter; Y92.89 Other specified places as the place of occurrence of the external cause; Z90.710 Acquired absence of both cervix and uterus; Z83.3 Family history of diabetes mellitus; Z82.49 Family history of ischemic heart disease and other diseases of the circulatory system; Z88.5 Allergy status to narcotic agent; Z79.899 Other long term (current) drug therapy; Z90.49 Acquired absence of other specified parts of digestive tract
CPT/HCPCS: 36415; 36600; 71045; 80048; 82803; 83036; 83880; 84443; 84484; 85025; 85379; 87205; 87400; 93005; 93010; 93306; 93970; 94640; 94760; G0378; J0456; J1650; J1956; J7050